=== PATIENT | female | born 1975 | race Caucasian/White ===

== ENCOUNTER 2019-09-17 06:48 | Day surgery (SDC) | payer OTHER ==
[2019-09-15 12:04] LABS: APPEARANCE,URINE CLEAR; BILIRUBIN,URINE NEGATIVE (NEGATIVE); COLOR,URINE YELLOW; GLUCOSE, URINE NEGATIVE (NEGATIVE); KETONES,URINE NEGATIVE (NEGATIVE); LEUKOCYTE ESTERASE,URINE NEGATIVE (NEGATIVE); NITRITE,URINE NEGATIVE (NEGATIVE); PROTEIN,URINE NEGATIVE (NEGATIVE); URINE SPECIFIC GRAVITY 1.026; UROBILINOGEN,URINE NEGATIVE mg/dL (<2.0)
[2019-09-15 12:05] LABS: HEMATOCRIT 38.5 % (36.0-47.0); HEMOGLOBIN 13.7 g/dL (12.0-15.5); MEAN CORPUSCULAR HEMOGLOBIN 32.8 pg (27.0-33.4); MEAN CORPUSCULAR HGB CONC 35.5 g/dL (32.0-36.0); MEAN CORPUSCULAR VOLUME 93 fl (80-97); PLATELET COUNT 298 10^3/uL (150-450); RED BLOOD COUNT 4.17 10^6/uL (3.72-5.28); RED CELL DISTRIBUTION WIDTH 12.1 % (11.5-14.0); WHITE BLOOD COUNT 4.2 10^3/uL (4.0-10.5)
--- NOTE | 2019-09-15 17:06 | EKG REPORT ---
SEVERITY:- BORDERLINE ECG - SINUS RHYTHM BORDERLINE T ABNORMALITIES, ANTERIOR LEADS : Confirmed by: Myriam Maldonado MD 15-Sep-2019 17:05:44
[~2019-09-17 06:48] MED LIST: CEFAZOLIN 1 GM/D5W RTU 1 GM/50 ML RTUPB IV ONE; CEFAZOLIN 1 GM/D5W RTU 1 GM/50 ML RTUPB IV PRN; LIDOCAINE 0.5% INJ-PF (5 MG/ML) 50 ML SDV SUBCUT PRN
[2019-09-17] MEDS ORDERED: LIDOCAINE 1%/EPINEPHRINE INJ 20 ML VIAL ONE (08:07)
[2019-09-17] MEDS ORDERED: MIDAZOLAM 2 MG/2 ML INJ ONE (08:07)
[2019-09-17] MEDS ORDERED: FENTANYL CITRATE INJ/PF 100 MCG/2 ML AMPUL ONE (08:07)
[2019-09-17] MEDS ORDERED: ONDANSETRON HCL INJ/PF 4 MG/2 ML SDV ONE (08:08)
[2019-09-17] MEDS ORDERED: PROPOFOL INJ 200 MG/20 ML VIAL IV ONE (08:08)
[2019-09-17] MEDS ORDERED: VASOPRESSIN INJ 20 UNIT/1 ML VIAL ONE (08:08)
[2019-09-17] MEDS ORDERED: ONDANSETRON HCL INJ/PF 4 MG/2 ML SDV IV PRN (08:48)
[2019-09-17] MEDS ORDERED: DIPHENHYDRAMINE HCL 50 MG/ML VIAL IV PRN (08:48)
[2019-09-17] MEDS ORDERED: OXYCODONE-ACETAMINOPHEN 5-325 MG TABLET PO PRN ×3 (08:48→10:08)
[2019-09-17] MEDS ORDERED: MORPHINE SULFATE 10 MG/ML INJ IV PRN (08:48)
[2019-09-17] MEDS ORDERED: FENTANYL CITRATE INJ/PF 100 MCG/2 ML AMPUL IV PRN ×3 (08:48)
[2019-09-17] MEDS ORDERED: MEPERIDINE HCL/PF INJ 25 MG/1 ML DISP.SYRIN IV PRN (08:48)
[2019-09-17] MEDS ORDERED: PROMETHAZINE HCL INJ 25 MG/1 ML VIAL IV PRN (08:48)
--- NOTE | 2019-09-17 09:18 | Operative Report ---
Operative Report DATE OF SURGERY: 09/17/19 PREOPERATIVE DIAGNOSIS: abnormal Pap [id number] POSTOPERATIVE DIAGNOSIS: Same OPERATION: CKC and endocervical biopsy SURGEON: SHIVANI PAEZ ANESTHESIA: GA TISSUE REMOVED OR ALTERED: Portion of cervix and endocervical canal tissue COMPLICATIONS: None ESTIMATED BLOOD LOSS: Negligible PROCEDURE: Patient placed in the dorsolithotomy tissue prepped in a sterile fashion. Speculum surgery) single-tooth tenaculum. Stay sutures 2-0 Vicryl placed at 3 and 9. The cervix was injected dilute solution of Pitressin and Xylocaine. Puncture wounds were made at 369 and 12 and connected with sharp dissection and portion of the cervix was thus removed. ECC was then done. The cone bed was then cauterized hemostasis was noted. A pledget of Gelfoam soaked in Monsel was placed in the cervical loss and the previously placed hemostatic suture plicated in the midline. The canal was removed hemostasis was noted procedure terminated she was taken recovery in good condition
[2019-09-17] MEDS ORDERED: KETOROLAC TROMETHAMINE INJ/PF 30 MG/1 ML SDV ONE (09:39)
[2019-09-17] MEDS ORDERED: ACETAMINOPHEN 1,000 MG/100 ML RTUPB IV ONE (09:39)
[2019-09-17] MEDS ORDERED: ONDANSETRON HCL 8 MG TABLET PO PRN (10:09)
[2019-09-17 11:18] VITALS: BP 88/57
[2019-09-17] MEDS ORDERED: IBUPROFEN 800 MG TABLET PO SCH (14:00)
== END 2019-09-17 11:20 | disposition home or self-care (01) ==
LOC: OROUT 06:48
PROVIDERS: ATTEND Obstetrics & Gynecology Gynecology
DX: D06.0 Carcinoma in situ of endocervix (principal); Z87.891 Personal history of nicotine dependence; R87.810 Cervical high risk human papillomavirus (HPV) DNA test positive
CPT/HCPCS: 93005; 36415 ×2; 84703; 85027; 81001; 88305 ×2; 88307 ×2; 93010; 00940; 57520; J2250; J0690; J3010; J3490 ×2; J1885; J2405; J2704; J0131; 940